=== PATIENT | female | born 1995 | race Caucasian/White ===

== ENCOUNTER 2016-11-28 06:07 | Day surgery (SDC) ==
--- NOTE | 2016-11-28 02:36 | HISTORY AND PHYSICAL ---
Date of planned procedures 11/28/2016. PREOPERATIVE DIAGNOSIS: Pelvic pain. PLANNED PROCEDURE: Diagnostic laparoscope, possible left oophorectomy and chromopertubation. CONDITION: Stable. HISTORY OF PRESENT ILLNESS: Ms. May is a 21-year-old 1, para 1 who has experienced pelvic pain over the past few weeks. She desires evaluation of this. Ultrasound revealed a retroverted uterus with a left ovary possibly scarred to the uterine fundus. PAST MEDICAL HISTORY: Significant for the pain. PAST SURGICAL HISTORY: Collyer teeth. She has had one previous vaginal delivery. Pap smear was read as ASCUS with high-risk HPV positive but 16, 18, and 45 were not detected and that was done in November 2014. ALLERGIES: She is allergic to latex gloves. MEDICATIONS: No medications. FAMILY HISTORY: Noncontributory. SOCIAL HISTORY: She denies alcohol or drug abuse. PHYSICAL EXAMINATION: VITAL SIGNS: Weight 183, blood pressure 112/58. GENERAL: Alert, cooperative, in moderate distress. NECK: Supple. LUNGS: Clear. HEART: Regular sinus rhythm. ABDOMEN: Soft. PELVIC: Deferred. ASSESSMENT: Pelvic pain. PLAN: Diagnostic scope, chromopertubation, possible lysis of adhesions, possible left salpingo- oophorectomy.
[2016-11-28] MEDS ORDERED: DIPRIVAN 1% ONE (06:25)
[2016-11-28] MEDS ORDERED: DECADRON ONE (07:00)
[2016-11-28] MEDS ORDERED: NEOSTIGMINE ONE (07:00)
[2016-11-28] MEDS ORDERED: XYLOCAINE-MPF 2% ONE (07:00)
[2016-11-28] MEDS ORDERED: ROBINUL ONE (07:00)
[2016-11-28] MEDS ORDERED: ZEMURON ONE (07:00)
[2016-11-28 07:23] LABS: MANUAL DIFF NEEDED? NO
[2016-11-28 07:25] LABS: BASO% 0.2 % (0.0-0.8); EOS# 0.11 X1000 (0.0-0.7); EOS% 1.2 % (0.0-10.0); HEMATOCRIT 36.6 % (37.0-47.0); HEMOGLOBIN 12.9 g/dL (12.0-16.0); IMM GRAN# 0.01 X1000 (0.0-0.04); IMM GRAN% 0.1 % (0.0-0.5); LYMPH# 3.11 X1000 (1.2-3.4); LYMPH% 34.2 % (20.5-51.1); MCH 29.2 PG (27-31); MCHC 35.2 g/dL (33-37); MCV 82.8 FL (81-99); MONO# 0.62 X1000 (0.11-0.59); MONO% 6.8 % (1.7-9.3); MPV 9.1 FL (7.4-10.4); NEUT% 57.5 % (42.2-75.2); PLT 337 X1000 (130-400); RBC 4.42 XMIL (4.2-5.4)
[2016-11-28] MEDS ORDERED: FENTANYL ONE (07:48)
[2016-11-28] MEDS ORDERED: VERSED ONE (07:49)
[2016-11-28] MEDS ORDERED: PEPCID IV ONE (08:00)
[2016-11-28] MEDS ORDERED: BICITRA PO ONE (08:00)
[2016-11-28] MEDS ORDERED: REGLAN IV ONE (08:00)
[2016-11-28] MEDS ORDERED: SODIUM CHLORIDE 0.9% INJ ONE (08:00)
[2016-11-28] MEDS ORDERED: LR 1,000 ML ONE (08:30)
[2016-11-28] MEDS ORDERED: SENSORCAINE 0.25%/EPI 1:200,000 ONE (08:30)
[2016-11-28] MEDS ORDERED: METHYLENE BLUE 1% ONE (08:30)
[2016-11-28] MEDS ORDERED: ZOFRAN ONE (08:40)
[2016-11-28] MEDS ORDERED: TORADOL IV ONE (09:50)
[2016-11-28] MEDS ORDERED: ZOFRAN IV ONE (09:50)
[2016-11-28] MEDS ORDERED: TORADOL ONE (09:55)
[2016-11-28 14:53] VITALS: BP 122/52
--- NOTE | 2016-11-29 09:55 | OPERATIVE NOTE ---
PROCEDURE DATE: 11/28/2016 DATE OF SURGERY: 11/28/2016. PREOPERATIVE DIAGNOSIS: Pelvic pain. POSTOPERATIVE DIAGNOSIS: Pelvic pain. PROCEDURE: Diagnostic laparoscopy and chromopertubation. SURGEON: Dr. Bhavin Villa. MACHINE SET UP: Dr. Zac Chin. ANESTHESIA: General endotracheal with Dr. St. FINDINGS: She had normal-appearing tubes and ovaries. Her left utero-ovarian ligament appeared short, but the ovary was not compromised or it was freely mobile. There was no evidence of endometriosis or scarring. Upper abdomen looked good also. ESTIMATED BLOOD LOSS: None. SPECIMENS: None. DRAINS: None. INDICATIONS: Please refer to Ms. May's H and P. She was admitted for surgery. All questions were answered. DESCRIPTION OF PROCEDURE IN DETAIL: She was brought to the operating room where she was placed under general endotracheal anesthesia and prepped and draped in the dorsal lithotomy position. A speculum was placed in the vagina. The cervix was identified. Anterior it was grasped with a single-tooth tenaculum and, using Hegar dilators, the cervix was dilated enough to admit a uterine manipulator for advancement of the dye for the chromopertubation. Once this was done, gloves were changed and she was prepped and draped in a sterile fashion Infraumbilical area was anesthetized with 5 mL of 0.25% Marcaine. An incision was made. An 11 mm port was placed directly into the abdomen. Once placement was verified, she was insufflated with CO2 and placed in steep Trendelenburg. Then a 5 mm port was placed on patient's left side. So, using the camera and a probe and the uterine manipulator, uterus was lifted up. The posterior cul-de-sac was free. Right ovary appeared entirely normal. Left ovary at first appeared to be scarred to the uterus; however, it was freely mobile and a normal-appearing uterine-ovarian ligament was noted. It was short, but did not see how it compromised the ovary at all. So after inspection of the abdomen no issues were noted. Dye was injected. Free flow was noted from both tubes. So at this point the blunt probe was removed. The CO2 began to be released. The camera was removed. She was taken out of steep Trendelenburg. The CO2 was completely released. The trocar was removed. The skin was repaired with 4-0 Vicryl subcuticularly, and the manipulator was removed and she was awakened and taken to the recovery room in stable condition.
== END 2016-11-28 15:30 | disposition home or self-care (01) ==
LOC: P.OR 06:07 → P.WC 06:08 → P.OR 15:30
PROVIDERS: ATTEND Obstetrics & Gynecology
DX: R10.2 Pelvic and perineal pain (principal)
CPT/HCPCS: 84703; 85025; J1100; J1885; J2250; J2405; J2710; J2765; J3010; J7120; Q9968